=== PATIENT | female | born 1945 | race Caucasian/White ===

== ENCOUNTER 2018-07-30 07:10 | Emergency (ER) | payer MEDICARE ==
[~2018-07-30] VITALS: Ht 160 cm; Wt 75.0 kg
[~2018-07-30 07:10] MED LIST: ASPI-1264 PO; ATOR40TA71 PO; CHOL200026 PO; LEVO75TA7 PO; MULT-1085 PO
[2018-07-30] MEDS ORDERED: benzonatate 100mg capsule PO ONE (07:35)
[2018-07-30] MEDS ORDERED: ipratropium/albuterol 3ml nebule NEB ONE (07:35)
[2018-07-30] MEDS ORDERED: pseudoephedrine 30mg tablet PO ONE (08:15)
[2018-07-30 09:00] LABS: BASOPHILS % (AUTO) 0.4 % (0-1); EOSINOPHILS # (AUTO) 0.1 X10'3 (0-0.9); EOSINOPHILS % (AUTO) 1.1 % (0-6); HEMATOCRIT 39.1 % (35.0-45.0); HEMOGLOBIN 13.2 g/dl (12.0-16.0); MEAN CORPUSCULAR HGB CONC 33.8 g/dL (33.0-36.5); MEAN CORPUSCULAR VOLUME 91.8 FL (78-98); MEAN PLATELET VOLUME 8.1 FL (7.4-10.4); MONOCYTES # (AUTO) 0.6 X10'3 (0-0.9); MONOCYTES % (AUTO) 10.9 % (2-12); NEUTROPHILS # (AUTO) 3.1 X10'3 (1.8-7.7); NEUTROPHILS % (AUTO) 53.6 % (42-75); PLATELET COUNT 227 X10'3 (140-440); RED BLOOD COUNT 4.26 X10'6 (4.20-5.60); RED CELL DISTRIBUTION WIDTH 13.8 % (11.5-14.5); WHITE BLOOD COUNT 5.8 X10'3 (4.5-11.0)
[2018-07-30 09:03] LABS: ALANINE AMINOTRANSFERASE 189 U/L (12-78); ALBUMIN 3.7 G/DL (3.4-5.0); ALKALINE PHOSPHATASE 342 IU/L (46-116); ANION GAP 11 (8-16); ASPARTATE AMINO TRANSFERASE 127 U/L (10-37); BILIRUBIN,TOTAL 0.5 MG/DL (0.1-1.0); BLOOD UREA NITROGEN 17 MG/DL (7-18); BUN/CREATININE RATIO 14.8 (6.6-38.0); CALCIUM 8.5 MG/DL (8.5-10.1); CHLORIDE 100 MMOL/L (99-107); CREATININE 1.15 MG/DL (0.40-0.90); GLUCOSE 112 MG/DL (70-104); POTASSIUM 3.6 MMOL/L (3.5-5.1); SODIUM 136 MMOL/L (135-145); TOTAL CARBON DIOXIDE 24.9 MMOL/L (24-32); TOTAL PROTEIN 7.5 G/DL (6.4-8.2); eGFR 46 ML/MIN
[2018-07-30 09:20] VITALS: BP 124/92
[2018-07-30] MEDS ORDERED: INHA1INH2 (09:37)
[2018-07-30] MEDS ORDERED: BENZ-16 PO (09:37)
[2018-07-30] MEDS ORDERED: GUAI473S11 PO (09:37)
[2018-07-30] MEDS ORDERED: ALBU18HF2 INH (09:37)
== END 2018-07-30 09:50 | disposition home or self-care (01) ==
LOC: ER 07:11
DX: J06.9 Acute upper respiratory infection, unspecified (principal); J40 Bronchitis, not specified as acute or chronic; R19.7 Diarrhea, unspecified; R42 Dizziness and giddiness; E78.00 Pure hypercholesterolemia, unspecified; Z79.82 Long term (current) use of aspirin; Z79.899 Other long term (current) drug therapy
CPT/HCPCS: 36415; 71046; 80053; 84484; 85025; 93005; 94640; 94760; 99284

== ENCOUNTER 2021-10-25 22:21 | Emergency (ER) | payer MEDICARE ==
[~2021-10-25] VITALS: Ht 160 cm; Wt 75.0 kg
[~2021-10-25 22:21] MED LIST changes: +ALBU18HF2 INH; +INHA1INH2
[2021-10-25 23:27] VITALS: BP 119/78
[2021-10-25] MEDS ORDERED: ketorolac trometh inj. 60 MG/2 ML VIAL IM ONE (23:45)
[2021-10-26] MEDS ORDERED: ketorolac trometh. 30mg/ml inj. IV ONE (00:30)
== END 2021-10-26 00:45 | disposition home or self-care (01) ==
LOC: ER 22:22
DX: G57.02 Lesion of sciatic nerve, left lower limb (principal); M25.552 Pain in left hip; M54.50 Low back pain, unspecified; R20.0 Anesthesia of skin; E78.00 Pure hypercholesterolemia, unspecified; Z72.89 Other problems related to lifestyle; Z79.82 Long term (current) use of aspirin; Z79.899 Other long term (current) drug therapy
CPT/HCPCS: 73502; 96372; 99283; J1885

== ENCOUNTER 2022-03-02 05:55 | Inpatient (IN) | payer MEDICARE ==
[~2022-03-02] VITALS: Ht 157.5 cm; Wt 65.9 kg
[2022-03-02] MEDS ORDERED: ondansetron/PF 4mg/2ml inj IV ONE (06:50)
[2022-03-02] MEDS ORDERED: morphine 4 MG/ML inj SYRINge IV ONE (06:50)
[2022-03-02] MEDS ORDERED: acetaminophen 325mg tablet PO PRN ×2 (08:45)
[2022-03-02] MEDS: normal saline 1000ml 1,000 ML IV SCH ×2 (08:45→23:03)
[2022-03-02] MEDS ORDERED: magnesium 4gm in 100ml NS 100 ML IV PRN (08:45)
[2022-03-02] MEDS ORDERED: potassium Cl 40MEQ/1/2NS 520ml 520 ML IV PRN (08:45)
[2022-03-02] MEDS ORDERED: magnesium Cl slow-release 64mg tablet PO PRN (08:45)
[2022-03-02] MEDS ORDERED: potassium Cl 20 mEq SR tablet PO PRN ×2 (08:45)
[2022-03-02] MEDS ORDERED: ondansetron/PF 4mg/2ml inj IV PRN (08:45)
[2022-03-02] MEDS ORDERED: morphine 2 MG/ML inj. syringe IV PRN (08:45)
[2022-03-02 09:58] LABS: BASOPHILS # (AUTO) 0.1 X10'3 (0-0.2); BASOPHILS % (AUTO) 1.4 % (0-1); EOSINOPHILS # (AUTO) 0.3 X10'3 (0-0.9); EOSINOPHILS % (AUTO) 5.7 % (0-6); HEMATOCRIT 43.9 % (35.0-45.0); HEMOGLOBIN 14.3 g/dl (12.0-16.0); LYMPHOCYTES # (AUTO) 2.3 X10'3 (1.1-4.8); LYMPHOCYTES % (AUTO) 37.9 % (21-51); MEAN CORPUSCULAR HEMOGLOBIN 30.8 PG (27.0-31.0); MEAN CORPUSCULAR HGB CONC 32.6 g/dL (33.0-36.5); MEAN CORPUSCULAR VOLUME 94.6 FL (78-98); MEAN PLATELET VOLUME 7.8 FL (7.4-10.4); MONOCYTES # (AUTO) 0.5 X10'3 (0-0.9); MONOCYTES % (AUTO) 8.6 % (2-12); NEUTROPHILS # (AUTO) 2.8 X10'3 (1.8-7.7); NEUTROPHILS % (AUTO) 46.4 % (42-75); PLATELET COUNT 285 X10'3 (140-440); RED BLOOD COUNT 4.64 X10'6 (4.20-5.60)
[2022-03-02 10:03] LABS: APTT 25 SECONDS (22-32)
[2022-03-02 10:21] LABS: ALANINE AMINOTRANSFERASE 51 U/L (12-78); ALBUMIN 4.3 G/DL (3.4-5.0); ALBUMIN/GLOBULIN RATIO 1.2 (1.1-1.5); ALKALINE PHOSPHATASE 144 IU/L (46-116); ANION GAP 7 (8-16); ASPARTATE AMINO TRANSFERASE 38 U/L (10-37); BILIRUBIN,TOTAL 0.7 MG/DL (0.1-1.0); BLOOD UREA NITROGEN 19 MG/DL (7-18); BUN/CREATININE RATIO 24.4 (6.6-38.0); CALCIUM 9.4 MG/DL (8.5-10.1); CHLORIDE 102 MMOL/L (99-107); CREATININE 0.78 MG/DL (0.40-0.90); GLUCOSE 110 MG/DL (70-104); MAGNESIUM 2.2 MG/DL (1.5-2.4); POTASSIUM 4.1 MMOL/L (3.5-5.1); SODIUM 137 MMOL/L (135-145); TOTAL PROTEIN 7.8 G/DL (6.4-8.2); eGFR 72 ML/MIN
[2022-03-02] MEDS: HYDROcodone/acetaminophen 10/325mg tab PO PRN ×2 (10:27→17:35)
[2022-03-02] MEDS ORDERED: CARV3.1244 PO ×2 (11:16→17:22)
[2022-03-02] MEDS ORDERED: GABA-530 PO (11:16)
[2022-03-02] MEDS ORDERED: DICL50TA8 PO (11:16)
[2022-03-02] MEDS ORDERED: HYDR-3964 PO (11:16)
[2022-03-02] MEDS ORDERED: ATOR40TA72 PO (11:16)
[2022-03-02] MEDS ORDERED: DULO20CA18 PO (11:16)
[2022-03-02] MEDS ORDERED: SOTA80TA73 PO (13:14)
[2022-03-02] MEDS ORDERED: ALBU90AE INH (13:15)
--- NOTE | 2022-03-02 14:01 | NUR ---
MOVED PT OFF ER [facility] TO HOSPITAL BED.
[2022-03-02] MEDS: heparin, porcine 5000 units/ml vial SQ SCH ×2 (16:00→17:36)
[2022-03-02] MEDS ORDERED: albuterol 2.5 MG/3 ML nebule NEB PRN (16:35)
[2022-03-02] MEDS ORDERED: SOTA80TA46 PO (17:23)
[2022-03-02] MEDS: morphine 2 MG/ML inj. syringe IV PRN (17:36)
[2022-03-02] MEDS ORDERED: carVEDilol 3.125mg tablet PO SCH (20:00)
[2022-03-02] MEDS ORDERED: sotalol HCl 40mg (1/2 tablet) PO SCH (20:00)
[2022-03-02] MEDS: carVEDilol 3.125mg tablet PO SCH (20:00)
[2022-03-02] MEDS: atorvastatin 20mg tablet PO SCH (20:30)
[2022-03-03] VITALS (16 sets, daily range): BP systolic 107–142; BP diastolic 64–94
--- NOTE | 2022-03-03 01:00 | NUR ---
pt is resting quietly on hospital bed, resp even and unlabored, skin p/w/d
[2022-03-03] MEDS: heparin, porcine 5000 units/ml vial SQ SCH ×3 (01:45→16:42)
[2022-03-03] MEDS: HYDROcodone/acetaminophen 5mg/325mg tablet PO PRN ×2 (01:45→08:11)
--- NOTE | 2022-03-03 05:42 | NUR ---
pt up to bedside commode without assist
--- NOTE | 2022-03-03 06:50 | NUR ---
PT AWAKE, RESTING COMFORTABLY IN BED. NO NEEDS AT THIS TIME. PT EDUCATED ON USING CALL LIGHT BEFORE GETTING OUT OF BED OR IF SHE HAS ANY NEEDS.
[2022-03-03 07:20] LABS: BASOPHILS % (AUTO) 0.8 % (0-1); EOSINOPHILS # (AUTO) 0.4 X10'3 (0-0.9); EOSINOPHILS % (AUTO) 6.3 % (0-6); HEMATOCRIT 37.5 % (35.0-45.0); HEMOGLOBIN 12.2 g/dl (12.0-16.0); LYMPHOCYTES # (AUTO) 2.6 X10'3 (1.1-4.8); LYMPHOCYTES % (AUTO) 46.9 % (21-51); MEAN CORPUSCULAR HEMOGLOBIN 31.4 PG (27.0-31.0); MEAN CORPUSCULAR HGB CONC 32.6 g/dL (33.0-36.5); MEAN CORPUSCULAR VOLUME 96.2 FL (78-98); MEAN PLATELET VOLUME 7.7 FL (7.4-10.4); MONOCYTES # (AUTO) 0.6 X10'3 (0-0.9); MONOCYTES % (AUTO) 11.2 % (2-12); NEUTROPHILS # (AUTO) 1.9 X10'3 (1.8-7.7); NEUTROPHILS % (AUTO) 34.8 % (42-75); PLATELET COUNT 245 X10'3 (140-440); RED CELL DISTRIBUTION WIDTH 13.9 % (11.5-14.5); WHITE BLOOD COUNT 5.6 X10'3 (4.5-11.0)
[2022-03-03] MEDS: carVEDilol 3.125mg tablet PO SCH ×2 (07:53→19:30)
[2022-03-03] MEDS: levoTHYROXINE 75mcg tablet PO SCH (07:53)
[2022-03-03] MEDS: duloxetine 20mg capsule.DR PO SCH (08:02)
[2022-03-03] MEDS ORDERED: morphine 2 MG/ML inj. syringe IV PRN (08:05)
[2022-03-03] MEDS ORDERED: hydrALAZINE 20mg/ml inj. IV PRN (08:05)
[2022-03-03] MEDS ORDERED: labetalol 20mg/4ml (5mg/ml) syringe IV PRN (08:05)
[2022-03-03] MEDS ORDERED: ondansetron/PF 4mg/2ml inj IV PRN (08:05)
[2022-03-03] MEDS ORDERED: morphine 4 MG/ML inj SYRINge IV PRN (08:05)
[2022-03-03] MEDS ORDERED: ringers solution, lacted 1,000 ML IV SCH (08:05)
[2022-03-03] MEDS ORDERED: fentaNYL/PF 50MCG/1 ML 2ML syringe IV PRN ×2 (08:05)
[2022-03-03 08:16] LABS: ALANINE AMINOTRANSFERASE 34 U/L (12-78); ALBUMIN 3.3 G/DL (3.4-5.0); ALBUMIN/GLOBULIN RATIO 1.2 (1.1-1.5); ALKALINE PHOSPHATASE 113 IU/L (46-116); ANION GAP 5 (8-16); ASPARTATE AMINO TRANSFERASE 29 U/L (10-37); BILIRUBIN,TOTAL 0.5 MG/DL (0.1-1.0); BLOOD UREA NITROGEN 20 MG/DL (7-18); CALCIUM 8.7 MG/DL (8.5-10.1); CHLORIDE 106 MMOL/L (99-107); GLUCOSE 89 MG/DL (70-104); POTASSIUM 4.1 MMOL/L (3.5-5.1); SODIUM 141 MMOL/L (135-145); TOTAL CARBON DIOXIDE 29.7 MMOL/L (24-32); TOTAL PROTEIN 6.1 G/DL (6.4-8.2); eGFR 54 ML/MIN
--- NOTE | 2022-03-03 08:36 | NUR ---
PT leaving for OR
[2022-03-03] MEDS ORDERED: ROPIVAcaine 0.5% (5mg/ml) 30ml vial ONE (09:27)
[2022-03-03] MEDS ORDERED: ketorolac trometh. 30mg/ml inj. ONE (09:27)
[2022-03-03] MEDS ORDERED: cloNIDine hcl/PF 100mcg/ml inj ONE (09:27)
[2022-03-03] MEDS ORDERED: epiNEPHrine 1 mg/ml inj ONE (09:27)
[2022-03-03] MEDS ORDERED: vancomycin 1,000mg inj ONE ×3 (09:28→10:36)
[2022-03-03] MEDS ORDERED: PHENYLephrine 10mg/ml 5ml injection IV ONE (10:16)
[2022-03-03] MEDS ORDERED: MIDAZolam 1 MG/ML 5ML VIAL ONE (10:35)
[2022-03-03] MEDS ORDERED: ceFAZolin 1000mg inj ONE ×2 (10:36)
[2022-03-03] MEDS ORDERED: tranexamic acid inj. 1,000 MG in normal saline IV soln 100ML IV ONE (10:45)
[2022-03-03] MEDS ORDERED: cloNIDine hcl/PF 100mcg/ml inj IJ ONE (11:05)
[2022-03-03] MEDS ORDERED: ROPIVAcaine 0.5% (5mg/ml) 30ml vial IJ ONE (11:05)
[2022-03-03] MEDS ORDERED: epiNEPHrine 1 MG/ML 1 ml ampule **BRONCH ONLY IJ ONE (11:05)
[2022-03-03] MEDS ORDERED: diphenhydrAMINE 50 mg/ml inj ONE (11:22)
--- NOTE | 2022-03-03 11:53 | NUR ---
Received from OR via HOSPITAL BED, accompanied by Anesthesiologist DR CASTANO and report given by Anesthesiolgist. PT PRESENTS WITH IV RIGHT AC, COVERED WITH COBAN, LEFT HIP, TOPHER DRESSING WITH KNEE IMMOBILIZER. PEDAL PULSES PALPABLE, VSS. Addendum: 03/03/22 at 1219 by Saumya Bennett RN, RN Amended: Links added.
--- NOTE | 2022-03-03 13:53 | NUR ---
Report called to receiving nurse BRUCE BARTH. Transferred via [facility]OPSITAL BED Belongings WERE LEFT IN PT ROOM. BED IN LOW LOCKED POSITION WITH CALL LIGHT IN REACH. PT LHOOKED P SANDRA SHANKS. Special Issues communicated to receiving nurse. Addendum: 03/03/22 at 1406 by Saumya Bennett RN, RN Amended: Links added.
[2022-03-03] MEDS: morphine 2 MG/ML inj. syringe IV PRN (14:55)
[2022-03-03] MEDS ORDERED: sotalol 40mg tablet PO SCH (15:10)
[2022-03-03] MEDS ORDERED: HYDROmorphone 1 mg/ml syringe IV PRN (15:15)
[2022-03-03] MEDS ORDERED: HYDROmorphone inj. 0.5 MG/0.5 ML DISP.SYRIN IV PRN (15:15)
[2022-03-03] MEDS: HYDROmorphone inj. 0.5 MG/0.5 ML DISP.SYRIN IV PRN (15:17)
[2022-03-03] MEDS: cyclobenzaprine 10mg tablet PO PRN (15:48)
[2022-03-03] MEDS: normal saline 1000ml 1,000 ML IV SCH ×2 (15:57→16:05)
[2022-03-03] MEDS: sotalol HCl 40mg (1/2 tablet) PO SCH ×3 (15:57→17:27)
[2022-03-03] MEDS ORDERED: ketorolac trometh. 30mg/ml inj. IV PRN (16:30)
--- NOTE | 2022-03-03 17:42 | NUR ---
Patient was very painful about 40 minutes after coming back from recovery. Pt arrived to floor with pain controlled. I initially gave 2 mg of morphine which was ordered but that did not control pain. I called Dr Rivera and was given an order for dilaudid 0.5mg at that time and prn and also another order for dilaudid 1mg prn for later. The dilaudid was given about 35 minutes after morphine which also did not give relief. Pt then complained that it was more of a spasm type feeling going from hip to lower leg and Dr Yousuf Rivera ordered flexeril which was give and also no relief after 30minute. Pt was screaming in pain as spasms continued. We talk to Dr Rivera again which suggested a warm pack on leg and 15mg torodol prn x 48hrs. The torodol seemed to help some and now after 2.5hours she seems to be resting more comfortably at this time. She is still painful but says the spasms are not as intense at this time. Dr Rivera says with the stretching of the muscles after 4months of walking around with the fracture is very painful and it is not unexpected to have more pain than usual due to stretching. Will monitor patient closely for changes.
--- NOTE | 2022-03-03 18:30 | NUR ---
Patient in room [facility]. I have received report from Joann BERKOWITZ and had the opportunity to ask questions and assume patient care.
--- NOTE | 2022-03-03 18:50 | NUR ---
Report given to Sara BERKOWITZ, all questions answered at this time. Pt confused in bed appears to be sundowning. No complaints of pain at this time. Addendum: 03/03/22 at 1852 by Joann Donohue RN RN Patient report given to Sara BERKOWITZ, but this patient is not confused, that was a different pt.
--- NOTE | 2022-03-03 18:51 | NUR ---
Bed alarm on Addendum: 03/03/22 at 1851 by Joann Donohue RN RN wrong pt
--- NOTE | 2022-03-03 18:52 | NUR ---
Pt alert and oriented
[2022-03-03] MEDS: atorvastatin 20mg tablet PO SCH (21:19)
[2022-03-03] MEDS: HYDROcodone/acetaminophen 10/325mg tab PO PRN (21:36)
[2022-03-03] MEDS: temazepam 15mg capsule PO PRN (21:44)
[2022-03-04] MEDS: heparin, porcine 5000 units/ml vial SQ SCH ×4 (00:13→23:25)
[2022-03-04] MEDS: HYDROmorphone inj. 0.5 MG/0.5 ML DISP.SYRIN IV PRN (00:16)
[2022-03-04] MEDS: cyclobenzaprine 10mg tablet PO PRN ×2 (00:17→21:26)
[2022-03-04] MEDS: normal saline 1000ml 1,000 ML IV SCH ×2 (02:51→17:28)
[2022-03-04] MEDS: HYDROcodone/acetaminophen 10/325mg tab PO PRN ×3 (05:04→21:26)
[2022-03-04 06:00] VITALS: BP 114/61
--- NOTE | 2022-03-04 06:40 | NUR ---
Patient report given to Keyonna BERKOWITZ.
[2022-03-04 06:42] LABS: BASOPHILS % (AUTO) 0.5 % (0-1); EOSINOPHILS % (AUTO) 0.7 % (0-6); HEMATOCRIT 32.9 % (35.0-45.0); LYMPHOCYTES # (AUTO) 2.2 X10'3 (1.1-4.8); MEAN CORPUSCULAR HEMOGLOBIN 31.9 PG (27.0-31.0); MEAN CORPUSCULAR HGB CONC 33.5 g/dL (33.0-36.5); MEAN CORPUSCULAR VOLUME 95.3 FL (78-98); MEAN PLATELET VOLUME 8.2 FL (7.4-10.4); MONOCYTES # (AUTO) 0.9 X10'3 (0-0.9); MONOCYTES % (AUTO) 12.9 % (2-12); NEUTROPHILS # (AUTO) 3.6 X10'3 (1.8-7.7); NEUTROPHILS % (AUTO) 52.9 % (42-75); PLATELET COUNT 211 X10'3 (140-440); RED BLOOD COUNT 3.46 X10'6 (4.20-5.60); RED CELL DISTRIBUTION WIDTH 13.8 % (11.5-14.5); WHITE BLOOD COUNT 6.8 X10'3 (4.5-11.0)
[2022-03-04 07:00] LABS: ALANINE AMINOTRANSFERASE 18 U/L (12-78); ALBUMIN 2.8 G/DL (3.4-5.0); ALBUMIN/GLOBULIN RATIO 1.1 (1.1-1.5); ALKALINE PHOSPHATASE 91 IU/L (46-116); ANION GAP 5 (8-16); ASPARTATE AMINO TRANSFERASE 28 U/L (10-37); BILIRUBIN,TOTAL 0.7 MG/DL (0.1-1.0); BLOOD UREA NITROGEN 19 MG/DL (7-18); BUN/CREATININE RATIO 22.1 (6.6-38.0); CHLORIDE 105 MMOL/L (99-107); CREATININE 0.86 MG/DL (0.40-0.90); GLUCOSE 113 MG/DL (70-104); SODIUM 138 MMOL/L (135-145); TOTAL CARBON DIOXIDE 28.4 MMOL/L (24-32); TOTAL PROTEIN 5.3 G/DL (6.4-8.2); eGFR 64 ML/MIN
[2022-03-04] MEDS: ketorolac trometh. 30mg/ml inj. IV PRN ×2 (07:22→15:59)
[2022-03-04] MEDS: levoTHYROXINE 75mcg tablet PO SCH (07:23)
[2022-03-04] MEDS: sotalol HCl 40mg (1/2 tablet) PO SCH ×2 (08:15→21:50)
[2022-03-04] MEDS: duloxetine 20mg capsule.DR PO SCH (08:15)
[2022-03-04] MEDS: carVEDilol 3.125mg tablet PO SCH ×2 (08:15→21:50)
[2022-03-04 18:00] VITALS: BP 133/66
--- NOTE | 2022-03-04 18:31 | NUR ---
Patient in room [facility]. I have received report from Keyonna BERKOWITZ and had the opportunity to ask questions and assume patient care.
[2022-03-04 21:50] VITALS: BP 152/82
[2022-03-04] MEDS: atorvastatin 20mg tablet PO SCH (21:50)
[2022-03-04 22:00] VITALS: BP 124/73
[2022-03-04] MEDS: temazepam 15mg capsule PO PRN (23:24)
[2022-03-05] MEDS: ketorolac trometh. 30mg/ml inj. IV PRN (02:52)
[2022-03-05 06:26] VITALS: BP 132/81
--- NOTE | 2022-03-05 06:30 | NUR ---
Problems reprioritized. Patient report given, questions answered & plan of care reviewed with Carine WILKERSON.
--- NOTE | 2022-03-05 07:13 | NUR ---
Patient in room [facility]. I have received report from SHO Ruiz and had the opportunity to ask questions and assume patient care.
[2022-03-05 07:32] LABS: BASOPHILS % (AUTO) 0.5 % (0-1); EOSINOPHILS % (AUTO) 0.7 % (0-6); HEMATOCRIT 30.2 % (35.0-45.0); HEMOGLOBIN 10.1 g/dl (12.0-16.0); LYMPHOCYTES # (AUTO) 1.9 X10'3 (1.1-4.8); LYMPHOCYTES % (AUTO) 27.2 % (21-51); MEAN CORPUSCULAR HEMOGLOBIN 31.7 PG (27.0-31.0); MEAN CORPUSCULAR HGB CONC 33.5 g/dL (33.0-36.5); MEAN CORPUSCULAR VOLUME 94.7 FL (78-98); MEAN PLATELET VOLUME 7.8 FL (7.4-10.4); MONOCYTES # (AUTO) 0.9 X10'3 (0-0.9); MONOCYTES % (AUTO) 12.5 % (2-12); NEUTROPHILS # (AUTO) 4.1 X10'3 (1.8-7.7); NEUTROPHILS % (AUTO) 59.1 % (42-75); PLATELET COUNT 184 X10'3 (140-440); RED BLOOD COUNT 3.19 X10'6 (4.20-5.60); RED CELL DISTRIBUTION WIDTH 13.9 % (11.5-14.5); WHITE BLOOD COUNT 6.9 X10'3 (4.5-11.0)
[2022-03-05] MEDS: duloxetine 20mg capsule.DR PO SCH (07:36)
[2022-03-05] MEDS: levoTHYROXINE 75mcg tablet PO SCH (07:36)
[2022-03-05] MEDS: HYDROcodone/acetaminophen 10/325mg tab PO PRN ×2 (07:36→14:01)
[2022-03-05] MEDS: carVEDilol 3.125mg tablet PO SCH (07:40)
[2022-03-05] MEDS: heparin, porcine 5000 units/ml vial SQ SCH (07:40)
[2022-03-05] MEDS: sotalol HCl 40mg (1/2 tablet) PO SCH (07:41)
[2022-03-05 08:14] LABS: ALANINE AMINOTRANSFERASE 63 U/L (12-78); ALBUMIN 2.8 G/DL (3.4-5.0); ALKALINE PHOSPHATASE 138 IU/L (46-116); ANION GAP 6 (8-16); ASPARTATE AMINO TRANSFERASE 74 U/L (10-37); BILIRUBIN,TOTAL 0.8 MG/DL (0.1-1.0); BLOOD UREA NITROGEN 13 MG/DL (7-18); BUN/CREATININE RATIO 18.8 (6.6-38.0); CHLORIDE 104 MMOL/L (99-107); CREATININE 0.69 MG/DL (0.40-0.90); GLUCOSE 111 MG/DL (70-104); POTASSIUM 3.6 MMOL/L (3.5-5.1); SODIUM 136 MMOL/L (135-145); TOTAL CARBON DIOXIDE 26.3 MMOL/L (24-32); TOTAL PROTEIN 5.5 G/DL (6.4-8.2); eGFR 82 ML/MIN
[2022-03-05 10:28] VITALS: BP 101/55
[2022-03-05] MEDS ORDERED: ondansetron 4mg rapidly disintigrating tab PO PRN (12:15)
--- NOTE | 2022-03-05 13:30 | NUR ---
I have reviewed and agree with all interventions, assessments performed, and documentation by Carine Guzman LVN.
[2022-03-05] MEDS ORDERED: CYCL-1 PO (13:48)
--- NOTE | 2022-03-05 14:42 | NUR ---
Patient stable and appropriate for discharge home with family member. IV removed, all belongings taken from room. All discharge instructions and education given and reviewed with patient, all questions answered. Dressing CDI. Bob intact.
== END 2022-03-05 14:41 | disposition home health service (06) | DRG 522 ==
LOC: ER 05:56 → UNDOADMIN 08:45 → ED HOLD 08:45 → SUR 3N 03-03 07:25
PROVIDERS: ADMIT Internal Medicine; ATTEND Internal Medicine
PROC: 0SRB06Z Replacement of Left Hip Joint with Oxidized Zirconium on Polyethylene Synthetic Substitute, Open Approach (ICD-10-PCS; principal; 2022-03-03 10:16)
DX: S72.012A Unspecified intracapsular fracture of left femur, initial encounter for closed fracture (principal); E03.9 Hypothyroidism, unspecified; E78.00 Pure hypercholesterolemia, unspecified; M54.9 Dorsalgia, unspecified; W18.39XA Other fall on same level, initial encounter; I48.91 Unspecified atrial fibrillation; Z79.82 Long term (current) use of aspirin; Z91.81 History of falling; Z79.899 Other long term (current) drug therapy; Z79.890 Hormone replacement therapy; Y93.89 Activity, other specified; Y92.89 Other specified places as the place of occurrence of the external cause; Y99.8 Other external cause status
CPT/HCPCS: 36415; 71045; 72170; 73502; 80053; 82948; 83605; 83735; 84443; 85025; 85610; 85730; 87040; 87081; 93005; 94760; 96361; 96374; 96375; 97110; 97116; 97161; 97530; 99285; A4615; A6258; A7000; C1776; G0378; J0171; J0690; J0735; J1170; J1200; J1644; J1885; J2250; J2270; J2370; J2405; J2795; J3370; J3490; J7030; J7120

== ENCOUNTER 2023-04-06 11:21 | Emergency (ER) | payer MEDICARE ==
[~2023-04-06] VITALS: Ht 157.5 cm; Wt 68.2 kg
[~2023-04-06 11:21] MED LIST changes: -ALBU18HF2 INH; +ALBU8HFA INH; +ALBU90AE INH; -ASPI-1264 PO; -ATOR40TA71 PO; +ATOR40TA72 PO; +CARV3.1244 PO; -CHOL200026 PO; +CYCL-1 PO; +DULO20CA18 PO; +HYDR-3964 PO; -INHA1INH2; +PRED20TA PO; +SOTA80TA46 PO
[2023-04-06 12:55] VITALS: BP 127/76; PULSE 61; RESP 18; TEMP 98.6; O2SAT 99
== END 2023-04-06 12:57 | disposition home or self-care (01) ==
LOC: ER 11:21
DX: S70.02XA Contusion of left hip, initial encounter (principal); E78.00 Pure hypercholesterolemia, unspecified; Z79.899 Other long term (current) drug therapy; W19.XXXA Unspecified fall, initial encounter; Y93.89 Activity, other specified; Y92.89 Other specified places as the place of occurrence of the external cause; Y99.8 Other external cause status
CPT/HCPCS: 73501; 99284

== ENCOUNTER 2023-11-04 07:02 | Day surgery (SDC) | payer MEDICARE ==
[2023-10-28 14:28] LABS: BASOPHILS # (AUTO) 0.1 X10'3 (0-0.2); BASOPHILS % (AUTO) 1.2 % (0-1); EOSINOPHILS # (AUTO) 0.2 X10'3 (0-0.9); EOSINOPHILS % (AUTO) 2.5 % (0-6); LYMPHOCYTES # (AUTO) 2.4 X10'3 (1.1-4.8); LYMPHOCYTES % (AUTO) 37.3 % (21-51); MEAN CORPUSCULAR HEMOGLOBIN 31.6 PG (27.0-31.0); MEAN CORPUSCULAR HGB CONC 33.2 g/dL (33.0-36.5); MEAN CORPUSCULAR VOLUME 95.3 FL (78-98); MEAN PLATELET VOLUME 7.9 FL (7.4-10.4); MONOCYTES # (AUTO) 0.6 X10'3 (0-0.9); NEUTROPHILS # (AUTO) 3.2 X10'3 (1.8-7.7); PRE OP HEMATOCRIT 38.9 % (35.0-45.0); PRE OP HEMOGLOBIN 12.9 g/dL (12.0-16.0); PRE OP PLATELET COUNT 250 X10'3 (140-440); PRE OP WHITE BLOOD COUNT 6.4 10'3 (4.8-10.8); RED BLOOD COUNT 4.08 X10'6 (4.20-5.60); RED CELL DISTRIBUTION WIDTH 14.4 % (11.5-14.5)
[2023-10-28 14:41] LABS: ALBUMIN 3.9 G/DL (3.4-5.0); ALBUMIN/GLOBULIN RATIO 1.1 (1.1-1.5); ALKALINE PHOSPHATASE 133 IU/L (46-116); BLOOD UREA NITROGEN 24 MG/DL (7-18); BUN/CREATININE RATIO 28.2 (10.0-20.0); CALCIUM 9.1 MG/DL (8.5-10.1); CHLORIDE 105 MMOL/L (99-107); CREATININE 0.85 MG/DL (0.40-0.90); PRE OP ALT 43 U/L (30-65); PRE OP ANION GAP 7 (8-16); PRE OP AST 39 U/L (10-37); PRE OP BILIRUB, TOTAL 0.9 MG/DL (0.0-1.0); PRE OP GLUCOSE 89 MG/DL (70-104); PRE OP POTASSIUM 3.9 MMOL/L (3.4-5.1); PRE OP SODIUM 139 MMOL/L (135-145); TOTAL CARBON DIOXIDE 27.4 MMOL/L (24-32); TOTAL PROTEIN 7.3 G/DL (6.4-8.2); eGFR 65 ML/MIN
[2023-11-04] VITALS (11 sets, daily range): BP systolic 111–139; BP diastolic 66–92; PULSE 47–95; RESP 13–18; TEMP 97.1; O2SAT 91–98
[~2023-11-04] VITALS: Ht 160 cm; Wt 72.8 kg
[2023-11-04] MEDS: cefazolin 2gm/D5W 100mL 100 ML IV ONE (05:30)
[~2023-11-04 07:02] MED LIST changes: -ALBU8HFA INH; -ALBU90AE INH; -CYCL-1 PO; +DOCUMENT DATE & TIME OF BETA-BLOCKER PO ONE; -PRED20TA PO; +WARF-55 PO
[2023-11-04] MEDS: famotidine 20mg tablet PO ONE (07:47)
[2023-11-04] MEDS: ringers solution, lacted 1,000 ML IV SCH ×2 (07:49→10:13)
[2023-11-04] MEDS ORDERED: LIDOcaine 1% (10mg/ml)w/preservative inj. 20ml MDV ONE (07:56)
[2023-11-04] MEDS ORDERED: sevoflurane 250ml liquid IH ONE (08:22)
[2023-11-04] MEDS ORDERED: fentaNYL/PF 50MCG/1 ML 2ML syringe ONE (08:28)
[2023-11-04] MEDS ORDERED: midazolam 1 mg/ML 2ml injection ONE (08:29)
[2023-11-04] MEDS ORDERED: meperidine/PF 25mg/ml syringe IV PRN (08:45)
[2023-11-04] MEDS ORDERED: hydrALAZINE 20mg/ml inj. IV PRN (08:45)
[2023-11-04] MEDS ORDERED: proCHLORperazine 10 MG/2 ml inj IV PRN (08:45)
[2023-11-04] MEDS ORDERED: morphine 2 MG/ML inj. syringe IV PRN (08:45)
[2023-11-04] MEDS ORDERED: HYDROmorphone/PF 0.2 MG/ML SYRINGE IV PRN ×2 (08:45)
[2023-11-04] MEDS ORDERED: labetalol 20mg/4ml (5mg/ml) syringe IV PRN (08:45)
[2023-11-04] MEDS ORDERED: acetaminophen 1,000mg/100ml IV 100 ML IV ONE (08:45)
[2023-11-04] MEDS ORDERED: morphine 4 MG/ML inj SYRINge IV PRN (08:45)
[2023-11-04] MEDS ORDERED: rocuronium 10mg/ml inj IV ONE (08:49)
[2023-11-04] MEDS ORDERED: ondansetron/PF 4mg/2ml inj ONE (08:49)
[2023-11-04] MEDS ORDERED: LIDOcaine 2% (20mg/ml) 5ml vial ONE (08:49)
[2023-11-04] MEDS ORDERED: dexamethasone sod phosphate 4mg/ml inj. ONE (08:49)
[2023-11-04] MEDS ORDERED: propofol inj 20 ML IV ONE (08:49)
[2023-11-04] MEDS ORDERED: ePHEDrine 50MG/ML INJ. ONE (08:57)
[2023-11-04] MEDS: LIDOcaine 1% 30ml preserv. free vial IJ ONE (09:00)
[2023-11-04] MEDS: BUPIVAcaine 2.5mg/ml inj 50ml vial (contains preservative) ONE (09:20)
[2023-11-04] MEDS ORDERED: neostigmine methylsulfate 1 MG/ML 10ml vial ONE (09:28)
[2023-11-04] MEDS ORDERED: glycopyrrolate 0.2mg/ml inj ONE (09:28)
--- NOTE | 2023-11-04 09:45 | NUR ---
Received from OR via [facility], accompanied by Anesthesiologist DANISH and BRY RN report given by Anesthesiolgist. Pt responds to verbal stimuli, no s/sx of pain or distress. On 6l SM, 02 saturation 98%. VSS. 4 lap sites with bandaids, CDI. LR running in left forearm 20g PIV, 100cc/hr.
[2023-11-04] MEDS ORDERED: HYDROcodone/acetaminophen 5mg/325mg tablet PO PRN (09:55)
--- NOTE | 2023-11-04 10:55 | NUR ---
Reviewed dc instructions with patient and [facility]. Answered all questions and concerns. VSS. Pain 0/10. Pt is A/O x4. Needs assitance with ambulation. All belongings on patient-including hearing aids. Transported via wheelchair to private vehicle without incident.
== END 2023-11-04 10:55 | disposition home or self-care (01) ==
LOC: PAS 07:02
PROVIDERS: ATTEND Surgery
DX: K40.90 Unilateral inguinal hernia, without obstruction or gangrene, not specified as recurrent (principal); I10 Essential (primary) hypertension; E78.5 Hyperlipidemia, unspecified; E03.9 Hypothyroidism, unspecified; I48.91 Unspecified atrial fibrillation; F32.A Depression, unspecified; Z79.01 Long term (current) use of anticoagulants; Z79.890 Hormone replacement therapy; Z79.899 Other long term (current) drug therapy; Z96.653 Presence of artificial knee joint, bilateral; Z96.642 Presence of left artificial hip joint; Z98.890 Other specified postprocedural states
CPT/HCPCS: 36415; 49650; 80053; 82948; 85025; A4215; A4618; C1781; J0690; J1100; J2001; J2250; J2405; J2704; J2710; J3010; J3490; J7030; J7120; Z7506; Z7508; Z7512; Z7610